=== PATIENT | female | born 1965 | race Caucasian/White ===

== ENCOUNTER 2018-06-05 19:29 | Observation (INO) ==
[2018-06-05 19:49] LABS: Bilirubin,Urine Negative (Negative); Blood,Urine Negative (Negative); Clarity,Urine Clear (Clear); Color,Urine Yellow (Yellow); Glucose,Urine (UA) >=1000 mg/dL (Normal); Ketones,Urine Negative (Negative); Leukocyte Esterase,Urine Negative (Negative); Nitrite,Urine Negative (Negative); PH,Urine 6.5 pH Units (5.0-8.0); Protein,Urine 30 mg/dL (Neg-Trace); Specific Gravity,Urine 1.013 (1.010-1.025); Urobilinogen,Urine Normal (Normal)
[2018-06-05 19:51] LABS: Bacteria,Urine None Seen per hpf (None-Few); Hyaline Casts,Urine None Seen per lpf (None-Few); RBC,Urine 0-3 per hpf (0-3); Squamous Epithelial Cell,Urine Many per lpf (None-Few); WBC,Urine 0-3 per hpf (0-3)
--- NOTE | 2018-06-05 19:55 | Emergency Department Note ---
Disposition Clinical Impression: Hyperglycemia, Flank pain Disposition: Still a Patient Referrals: Richelle Esposito, IVANA [Primary Care Provider] - Forms: ED Satisfaction Letter General Adult HPI - General Chief complaint: ED Urogenital-Female Stated complaint: kidney stones Time Seen by Provider: 06/05/18 19:32 Source: patient Limitations: no limitations Nursing Notes Reviewed: Yes Vital Signs Reviewed: Yes - History of Present Illness HPI Narrative: 52 year old female presents to the ED with complaints of right flank pain and states that she has a history of kidney stones but none that have needed garcia rgical intervnetion. PAtinet states that she was recently diagnosed witha UTI and on a 3 day course of bactrim and states that her symptoms have not really improved. Milana states that she just developed some nausea without vomitting and no fevers. Milana denies chest pain or STDS or vaginal bleeding or discahrge. She states that ever since she had her hysterecomy she has had recurrent UTIs. Pain is sharp and wraps around to the right groin. Pain Scale: 9 - Related Data Home Medications Medication Instructions Recorded Confirmed Tamsulosin [Flomax] 0.4 mg PO DAILY 11/16/17 11/16/17 Previous Rx's Medication Instructions Recorded Promethazine [Phenergan] 25 mg PO Q6HR PRN #10 tablet 11/09/17 Sulfamethoxazole/Trimeth DS 1 each PO BID #10 tablet 11/09/17 [Bactrim DS] OxyCODONE/APAP 5/325 [Percocet 1 each PO Q4HR PRN 7 Days #42 11/17/17 5/325 MG] tablet HYDROcodone/Acet 5/325 mg [[place] 1 tab PO Q4H PRN 3 Days #18 tab 12/01/17 5-325 mg] Hyoscyamine SL [Levsin SL] 0.125 mg SL TID #15 tab.subl 12/01/17 Oxycodone HCl/Acetaminophen 1 each PO Q6H PRN 3 Days #12 tablet 12/01/17 [Endocet 5-325 Tablet] Phenazopyridine [Pyridium] 100 mg PO TID #9 tablet 12/01/17 Dicyclomine [Bentyl] 10 mg PO QID PRN #20 capsule 12/03/17 Lidocaine Patch [Lidoderm 5% patch] 1 each TP DAILY PRN #14 adh..patch 12/03/17 OxyCODONE/APAP 5/325 [Percocet 1 each PO Q6HR PRN 3 Days #12 12/05/17 5/325 MG] tablet Allergies Allergy/AdvReac Type Severity Reaction Status Date / Time morphine Allergy Rash Verified 06/05/18 19:31 ondansetron Allergy Rash Verified 06/05/18 19:31 [From Zofran (as hydrochloride)] acetaminophen [From [place]] AdvReac Headache Verified 06/05/18 19:31 adhesive tape AdvReac Rash Verified 06/05/18 19:31 hydrocodone [From [place]] AdvReac Headache Verified 06/05/18 19:31 Constitutional: Denies: fever, chills, weakness, weight change Eyes: Denies: eye pain, eye discharge, vision change ENT ED: Denies: ear pain, throat pain, dental pain, hearing loss, epistaxis, congestion, dysphagia Cardiovascular: Denies: chest pain, palpitations, dyspnea on exertion, edema, syncope Respiratory: Denies: cough, dyspnea, wheezes, hemoptysis, stridor Gastrointestinal: Reports: nausea. Denies: abdominal pain, vomiting, diarrhea, constipation, hematemesis, melena, hematochezia Genitourinary: Reports: dysuria. Denies: frequency, hematuria, discharge Musculoskeletal: Reports: back pain. Denies: neck pain, arthralgia, myalgia Integumentary: Denies: rash, abrasion, lesions Neurological: Denies: headache, weakness, numbness, paresthesias, confusion, abnormal gait, vertigo Psychiatric: Denies: anxiety, depression, suicidal thoughts, homicidal thoughts, auditory hallucinations, visual hallucinations Endocrine: Denies: fatigue Hematological/Lymphatic: Denies: easy bleeding, easy bruising Allergic/Immunologic: Denies: facial swelling, urticaria Past Medical History - Past Medical History Medical history: Reports: CVA, kidney stones, other Surgical history: Reports: , other Psychiatric history: Reports: no psych history - Social History Smoking Status: Current every day smoker Smokeless Tobacco Status: No Alcohol use: Reports: none Drug use: Reports: marijuana Physical Exam - General Limitations: no limitations General appearance: alert - Head Head exam: atraumatic, normocephalic, normal inspection - Eye Eye exam: Present: normal appearance, PERRL, EOMI - Expanded Eye Exam Pupils: Bilateral: reactive - ENT ENT exam: normal exam, normal oropharynx, mucous membranes moist - Expanded ENT Exam External ear exam: Present: normal external inspection Mouth exam: Present: normal external inspection Teeth exam: Present: normal inspection Throat exam: Present: normal inspection - Neck Neck exam: Present: normal inspection, full ROM, trachea midline - Chest Chest inspection: Present: normal inspection, symmetric chest wall rise - Respiratory Respiratory exam: Present: normal lung sounds bilaterally - Cardiovascular Cardiovascular exam: Present: regular rate, normal rhythm, normal heart sounds - Abdominal Exam Abdominal exam: Present: soft, Non-Tender. Absent: tenderness, distention, guarding, rebound, rigidity - Extremities Exam Extremities exam: Present: normal inspection, full ROM. Absent: tenderness, pedal edema - Expanded Upper Extremity Exam Shoulder exam: Present: normal inspection, full ROM Arm exam: Present: normal inspection, full ROM Elbow exam: Present: normal inspection, full ROM Forearm/Wrist exam: Present: normal inspection, full ROM Hand exam: Present: normal inspection, full ROM Vascular exam: Normal: capillary refill, radial pulse - Expanded Lower Extremity Exam Hip/Pelvis exam: Present: normal inspection, full ROM Upper leg exam: Present: normal inspection, full ROM Knee exam: Present: normal inspection, full ROM Lower leg exam: Present: normal inspection, full ROM Ankle exam: Present: normal inspection, full ROM Foot/toe exam: Present: normal inspection, full ROM Neurovascular/Tendon exam: Absent: motor deficit, sensory deficit, tendon deficit - Back Exam Back exam: Present: normal inspection, full ROM, CVA tenderness (R) - Neurological Exam Neurological exam: Present: alert, oriented X3 - Expanded Neurological Exam Patient oriented to: Present: person, place, time Coma Scale Eye Opening: Spontaneous Coma Scale Motor Response: Obeys Commands Coma Scale Verbal Response: Oriented Coma Scale Total: 15 - Psychiatric Psychiatric exam: Present: normal affect, normal mood - Skin Skin exam: Present: warm, dry, intact, normal color Course Course Narrative: we will do labs and ABCT and UA - Reevaluation(s) Reevaluation #1: patient has a critically high glucose and secondary to this and her flank pain in addiitn to nausea I will followpu wiht venous blood gas and ketones and treat with IVf. Ana Marianet will need more workup and thus I will sign patinet out to the 3p-1a Dr. Rolando Meza for further workup and reassssemnt. CT is still pending Time: 20:41 Vital Signs Temperature 97.8 F 06/05/18 19:31 Pulse Rate 80 06/05/18 19:31 Respiratory Rate 16 06/05/18 19:31 Blood Pressure 182/91 06/05/18 19:31 O2 Sat by Pulse Oximetry 98 06/05/18 19:31 Temperature 97.8 F 06/05/18 19:38 Pulse Rate 80 06/05/18 19:38 Respiratory Rate 16 06/05/18 19:38 Blood Pressure 182/91 06/05/18 19:38 O2 Sat by Pulse Oximetry 98 06/05/18 19:38 Oxygen Delivery Oxygen Delivery Room Air Medical Decision Making - Lab Data Result diagrams: 06/05/18 19:58 06/05/18 19:58 Lab Results 06/05/18 06/05/18 06/05/18 Range/Units 19:38 19:58 19:58 WBC 7.2 (4.3-11.1) K/mcL RBC 4.63 (3.82-4.97) M/mcL Hgb 13.8 (11.5-15.4) g/dL Hct 42.6 (35.3-44.9) % MCV 92.0 (83.0-100.0) fL MCH 29.8 (28.0-33.3) pg MCHC 32.4 (31.6-35.5) g/dL RDW 13.8 (11.5-14.5) % Plt Count 244 (140-400) K/mcL MPV 11.1 (9.4-12.4) fL Immature Gran % 0.6 (0-4) % Seg Neutrophils % 69.4 % Lymphocytes % 20.6 % Monocytes % 6.9 % Eosinophils % 1.9 % Basophils % 0.6 % Neutrophils # 5.0 (1.6-8.9) K/mcL Lymphocytes # 1.5 (0.6-4.6) K/mcL Monocytes # 0.5 (0.0-1.3) K/mcL Eosinophils # 0.1 (0.0-0.6) K/mcL Basophils # 0.0 (0.0-0.2) K/mcL Sodium 126 L (136-145) mEq/L Potassium 4.0 (3.5-5.1) mEq/L Chloride 96 L (98-107) mEq/L Carbon Dioxide 19 L (23-29) mEq/L BUN 22 H (6-20) mg/dL Creatinine 1.64 H (0.60-1.20) mg/dL Est GFR ( Amer) 40 L (> 60) Est GFR (Non-Af Amer) 33 L (> 60) BUN/Creatinine Ratio 13 (6-26) Glucose 571 H* (70-105) mg/dL Calculated Osmolality 292 (280-300) Calcium 9.1 (8.6-10.3) mg/dL Urine Color Yellow (Yellow) Urine Clarity Clear (Clear) Urine pH 6.5 (5.0-8.0) pH Units Ur Specific [place] 1.013 (1.010-1.025) Urine Protein 30 H (Neg-Trace) mg/dL Urine Glucose (UA) >=1000 H (Normal) mg/dL Urine Ketones Negative (Negative) mg/dL Urine Blood Negative (Negative) Urine Nitrite Negative (Negative) Urine Bilirubin Negative (Negative) Urine Urobilinogen Normal (Normal) mg/dL Ur Leukocyte Esterase Negative (Negative) Urine Microscopic RBC 0-3 (0-3) per hpf Urine Microscopic WBC 0-3 (0-3) per hpf Ur Squamous Epith Cells Many H (None-Few) per lpf Urine Bacteria None Seen (None-Few) per hpf Hyaline Casts None Seen (None-Few) per lpf Ur Culture Indicated? NO (NO)
[2018-06-05] MEDS ORDERED: Ketorolac 30 MG/ML VIAL IM ONE (19:58)
[2018-06-05] MEDS ORDERED: Metoclopramide 10 MG/10 ML UD.LIQ PO STA (19:58)
[2018-06-05 20:16] LABS: Basophils % 0.6 %; Eosinophils # 0.1 K/mcL (0.0-0.6); Eosinophils % 1.9 %; Hematocrit 42.6 % (35.3-44.9); Hemoglobin 13.8 g/dL (11.5-15.4); Immature Granulocytes % 0.6 % (0-4); Lymphocytes # 1.5 K/mcL (0.6-4.6); Lymphocytes % 20.6 %; Mean Corpuscular HGB Conc 32.4 g/dL (31.6-35.5); Mean Corpuscular Hemoglobin 29.8 pg (28.0-33.3); Mean Platelet Volume 11.1 fL (9.4-12.4); Monocytes # 0.5 K/mcL (0.0-1.3); Monocytes % 6.9 %; Platelet Count 244 K/mcL (140-400); Red Blood Count 4.63 M/mcL (3.82-4.97); Red Cell Distribution Width 13.8 % (11.5-14.5); Segmented Neutrophils % 69.4 %
[2018-06-05 20:38] LABS: BUN/Creatinine Ratio 13 (6-26); Blood Urea Nitrogen 22 mg/dL (6-20); Calcium 9.1 mg/dL (8.6-10.3); Carbon Dioxide 19 mEq/L (23-29); Chloride 96 mEq/L (98-107); Glucose 571 mg/dL (70-105); Osmolality,Calculated 292 (280-300); Sodium 126 mEq/L (136-145); eGFR For Non-African Americans 33 (> 60)
[2018-06-05] MEDS ORDERED: 0.9 % Sodium Chloride 1,000 ML IVC ONE ×2 (20:39→21:45)
[2018-06-05 21:08] LABS: Troponin I < 0.03 ng/mL (< 0.04)
[2018-06-05 21:27] LABS: VBG HCO3 23 mEq/L (21-27); VBG PCO2 40 mmHg (41-51); VBG PH 7.37 pH Units (7.32-7.42); VBG PO2 174 mmHg (25-50)
[2018-06-05] MEDS ORDERED: Insulin Regular, Human 100 UNIT/ML SQ ONE (21:45)
--- NOTE | 2018-06-05 22:22 | Internal Med History&Physical ---
<Salvador Orosco Li - Last Filed: 06/06/18 03:22> Date of Encounter: 06/06/18 Time of Encounter: 22:18 Internal Medicine - H&P: HPI Chief complaint: flank pain and dysuria Admitted From: Emergency Dept Plans for Post Hospital Care: Home History of present illness: Ms. Medel is a 52 year old female with PMHx kidney surgery at 6 yo, coil surgery for anuerysm, , nephrolithiasis, and stroke at the age of 28 admitted from the ED for evaluation of hyperglycemia and flank pain with urinary symptoms. Patient symptoms started on 05/27 with dysuria, increased frequency, flank pain. Patient was seen at an urgent care on 05/27 dxd with UTI and prescribed fluconazole and bactrim. She states she has had relief of vaginal itching, however she continues to have symptoms of a kidney stone. Has difficult time describing the sensation she feels when she urinates. Denies fevers, headache, chest pain, dyspnea, abdominal pain, diarrhea, hematuria or rash. Patient denies history of diabetes. Past Med Surg Social Fam HX - Past Medical History Medical history: CVA, kidney stones, other Additional medical history: 'BRAIN ANEURISM' Psychiatric history: no psych history - Past Surgical History Surgical History: , other Additional surgical history: brain ansyurm clipped - Social History Smoking Status: Current every day smoker Smokeless Tobacco Status: No Alcohol use: none Drug use: marijuana Internal Medicine - H&P: Meds Promethazine [Phenergan] 25 mg PO Q6HR PRN #10 tablet 11/09/17 [Rx] Sulfamethoxazole/Trimeth DS [Bactrim DS] 1 each PO BID #10 tablet 11/09/17 [Rx] Tamsulosin [Flomax] 0.4 mg PO DAILY 11/16/17 [History] OxyCODONE/APAP 5/325 [Percocet 5/325 MG] 1 each PO Q4HR PRN 7 Days #42 tablet 11/17/17 [Rx] HYDROcodone/Acet 5/325 mg [[place] 5-325 mg] 1 tab PO Q4H PRN 3 Days #18 tab 12/01/17 [Rx] Hyoscyamine SL [Levsin SL] 0.125 mg SL TID #15 tab.subl 12/01/17 [Rx] Oxycodone HCl/Acetaminophen [Endocet 5-325 Tablet] 1 each PO Q6H PRN 3 Days #12 tablet 12/01/17 [Rx] Phenazopyridine [Pyridium] 100 mg PO TID #9 tablet 12/01/17 [Rx] Dicyclomine [Bentyl] 10 mg PO QID PRN #20 capsule 12/03/17 [Rx] Lidocaine Patch [Lidoderm 5% patch] 1 each TP DAILY PRN #14 adh..patch 12/03/17 [Rx] OxyCODONE/APAP 5/325 [Percocet 5/325 MG] 1 each PO Q6HR PRN 3 Days #12 tablet 0 12/05/17 [Rx] Allergy/AdvReac Type Severity Reaction Status Date / Time morphine Allergy Rash Verified 06/05/18 19:31 ondansetron Allergy Rash Verified 06/05/18 19:31 [From Zofran (as hydrochloride)] acetaminophen [From [place]] AdvReac Headache Verified 06/05/18 19:31 adhesive tape AdvReac Rash Verified 06/05/18 19:31 hydrocodone [From [place]] AdvReac Headache Verified 06/05/18 19:31 All Systems PM: A 10-system review of systems was performed and is negative for pertinent findings except as documented above in the HPI. - Constitutional Constitutional: as per HPI - EENT Eyes: as per HPI Ears: as per HPI Nose, mouth and throat: as per HPI - Breasts Breasts: as per HPI - Cardiovascular Cardiovascular ROS IM: as per HPI - Respiratory Respiratory: as per HPI - Gastrointestinal Gastrointestinal: as per HPI - Genitourinary Genitourinary: as per HPI - Musculoskeletal Musculoskeletal ROS IM: as per HPI - Integumentary Integumentary IM: as per HPI - Neurological Neurological ROS: as per HPI - Psychiatric Psychiatric: as per HPI - Endocrine Endocrine IM: as per HPI - Hematologic/Lymphatic Hematologic/Lymphatic: as per HPI - Allergic/Immunologic Allergic/Immunologic: as per HPI - Constitutional Vitals: Temp Pulse Resp BP Pulse Ox 97.8 F 80 16 182/91 98 06/05/18 19:38 06/05/18 19:38 06/05/18 19:38 06/05/18 19:38 06/05/18 19:38 General appearance: Present: A&O X 3, no acute distress Exam: Patient is sitting up in bed in no acute distress. - Head Head exam: Present: atraumatic, normal inspection, normocephalic - Eye Eye exam: Present: normal appearance, PERRL - ENT ENT exam: Present: mucous membranes moist, normal exam - Neck Neck exam general surgery: Present: full ROM, normal inspection. Absent: tenderness - Respiratory Respiratory exam: Present: CTAB. Absent: rales, respiratory distress, wheezes - Cardiovascular Cardiovascular exam: Present: RRR, +S1, +S2 - GI/Abdominal GI/Abdominal exam: Present: normal bowel sounds, soft, no peritoneal signs. Absent: tenderness - Extremities Exam Extremities exam: Present: normal inspection. Absent: calf tenderness, pedal e shira - Back Exam Back exam: Present: CVA tenderness (L), CVA tenderness (R) - Neurological Exam Neurological exam: Present: alert, oriented X3, no focal deficits - Psychiatric Psychiatric exam: Present: normal affect, normal mood - Skin Skin exam: Present: intact, normal color Internal Med - H&P Results - Labs CBC & Chem 7: 06/05/18 19:58 06/05/18 19:58 Labs: Short CBC 06/05/18 Range/Units 19:58 WBC 7.2 (4.3-11.1) K/mcL Hgb 13.8 (11.5-15.4) g/dL Hct 42.6 (35.3-44.9) % Plt Count 244 (140-400) K/mcL Neutrophils # 5.0 (1.6-8.9) K/mcL BMP 06/05/18 19:58 Sodium 126 L Potassium 4.0 Chloride 96 L Carbon Dioxide 19 L BUN 22 H Creatinine 1.64 H Glucose 571 H* Calcium 9.1 Cardiac Enzymes 06/05/18 Range/Units 19:58 Troponin I < 0.03 (< 0.04) ng/mL Urine 06/05/18 Range/Units 19:38 Urine Color Yellow (Yellow) Urine Clarity Clear (Clear) Urine pH 6.5 (5.0-8.0) pH Units Ur Specific [place] 1.013 (1.010-1.025) Urine Protein 30 H (Neg-Trace) mg/dL Urine Glucose (UA) >=1000 H (Normal) mg/dL - ABG Interpretation ABG results: 06/05/18 21:24 VBG pH 7.37 VBG pCO2 40 L VBG pO2 174 H VBG HCO3 23 - Impressions ITS Impressions Abdomen/Pelvis CT 06/05/18 19:34 IMPRESSION: Fatty infiltration of the liver. Bilateral nephrolithiasis. D/ / Kayce Trinh Cha, MD / Kayce Trinh Cha, MD Interpreting Provider: Kayce Trinh Cha, MD - Assessment and plan (1) Hyperglycemia Current Visit: Yes Status: Acute Assessment and plan: Serum glucose in ED 571 hyponatremic at 126 however, corrected for glucose 136 No acidosis and no anion gap No ketones in serum or urine >1000 glucose in urine Hx poorly controlled sugar with no dx of DM Received 1L bolus in the ED and 10units SQ insulin Do not suspect HHS at this time given value of glucose, hx of poorly controlled gluocose, and otherwise stable patient Suspect this is poorly controlled T2DM Plan: - Recheck glucose after completion of 2L bolus - Low dose SSI - Monitor Na (2) BERNARDINO (acute kidney injury) Current Visit: Yes Status: Acute Assessment and plan: Suspect secondary to hypo-perfusion in setting of dehydration from hyperglycemia Cr 1.64 with normal baseline Plan: - 2 L bolus and maintenance fluids - Recheck labs in the AM (3) Flank pain Current Visit: Yes Status: Acute Assessment and plan: Pain with palpation of bilateral CVAs Multiple visits for similar symptoms in the past usually attributed to chronic renal colic Patient received toradol in ED (prior to labs being drawn, unaware of BERNARDINO) Patient also received fentanyl in the ED, patient refused to come to floor prio r to receiving the pain medication May be exacerbated by BERNARDINO UA negative for signs of infection CT abdomen and pelvis: Fatty infiltration of the liver and bilateral nephrolithiasis - nonobstructing and no hydronephrosis Plan: - Acetaminophen PRN - Lidocaine patch PRN - Bentyl PRN (4) DVT prophylaxis Current Visit: Yes Status: Acute Assessment and plan: Lovenox SQ - Time Spent With Patient Total time spent is greater than 50% in coordination of care (as documented) at patient's floor/unit and/or counseling patient: <Duncan Calzada - Last Filed: 06/06/18 03:41> Date of Encounter: 06/06/18 Time of Encounter: 00:25 - Constitutional Constitutional: no chills, no fever(s) - EENT Eyes: blurry vision Nose, mouth and throat: no nasal congestion, no sore throat - Cardiovascular Cardiovascular ROS IM: no chest pain, no dyspnea - Respiratory Respiratory: no cough, no chest congestion - Gastrointestinal Gastrointestinal: no cramping - Genitourinary Genitourinary: no flank pain - Musculoskeletal Musculoskeletal ROS IM: back pain - Neurological Neurological ROS: no dizziness, no focal weakness, no frequent falls, no headache(s) - Endocrine Endocrine IM: cold intolerance, polydipsia, polyuria, no heat intolerance - Constitutional Vitals: Temp Pulse Resp BP Pulse Ox 97.9 F 68 20 125/78 94 06/05/18 23:53 06/05/18 23:53 06/05/18 23:53 06/05/18 23:53 06/05/18 23:53 General appearance: Present: A&O X 3, no acute distress - Eye Eye exam: Present: PERRL. Absent: scleral icterus - ENT ENT exam: Present: mucous membranes dry, normal exam - Neck Neck exam general surgery: Present: normal inspection, supple - Respiratory Respiratory exam: Present: CTAB. Absent: rales, respiratory distress - Cardiovascular Cardiovascular exam: Present: RRR, +S1, +S2 - GI/Abdominal GI/Abdominal exam: Present: normal bowel sounds, soft. Absent: tenderness - Extremities Exam Extremities exam: Present: normal inspection. Absent: calf tenderness - Back Exam Back exam: Absent: CVA tenderness (L), CVA tenderness (R) - Skin Skin exam: Present: dry, intact, warm Internal Med - H&P Results - Labs CBC & Chem 7: 06/05/18 19:58 06/05/18 19:58 Labs: Short CBC 06/05/18 Range/Units 19:58 WBC 7.2 (4.3-11.1) K/mcL Hgb 13.8 (11.5-15.4) g/dL Hct 42.6 (35.3-44.9) % Plt Count 244 (140-400) K/mcL Neutrophils # 5.0 (1.6-8.9) K/mcL BMP 06/05/18 19:58 Sodium 126 L Potassium 4.0 Chloride 96 L Carbon Dioxide 19 L BUN 22 H Creatinine 1.64 H Glucose 571 H* Calcium 9.1 Cardiac Enzymes 06/05/18 Range/Units 19:58 Troponin I < 0.03 (< 0.04) ng/mL Urine 06/05/18 Range/Units 19:38 Urine Color Yellow (Yellow) Urine Clarity Clear (Clear) Urine pH 6.5 (5.0-8.0) pH Units Ur Specific [place] 1.013 (1.010-1.025) Urine Protein 30 H (Neg-Trace) mg/dL Urine Glucose (UA) >=1000 H (Normal) mg/dL - ABG Interpretation ABG results: 06/05/18 21:24 VBG pH 7.37 VBG pCO2 40 L VBG pO2 174 H VBG HCO3 23 - Impressions ITS Impressions Abdomen/Pelvis CT 06/05/18 19:34 IMPRESSION: Fatty infiltration of the liver. Bilateral nephrolithiasis. D/ / Kayce Trinh Cha, MD / Kayce Trinh Cha, MD Interpreting Provider: Kayce Trinh Cha, MD - Time Spent With Patient Total time spent is greater than 50% in coordination of care (as documented) at patient's floor/unit and/or counseling patient: - Attending Attestation I discussed the patient [place], past smoker history, review of systems, lab data, and exam findings with Dr. Orosco. I then saw and examined patient independently. Patient does not meet criteria for DKA or HHS. By exam, history, and lab data, she has evidence of uncontrolled diabetes. She has never been formally diagnosed with diabetes. However, upon further review of old labs, she has had several episodes of hyperglycemia. She received IV fluids and one-time dose of subcutaneous insulin. Her glucose has improved but still remains high. We will check an A1c in the morning and continue IV fluid hydration. We will keep her on sliding scale insulin. She very well may be able to be treated with oral hypoglycemic agents. However, we will monitor her closely here in the hospital and adjust her insulin and diet accordingly once her repeat labs are resulted. She would also benefit from diabetic education. CT of the abdomen and pelvis does not show any obstructive uropathy. She suffers from chronic pain, and I suspect it is exacerbated by her volume depleted status from her uncontrolled diabetes. With aggressive hydration, I think she will improve clinically and can hopefully be discharged in the next day or 2 with appropriate diabetic education and management plan. Other than my comments above and noted exam findings, I agree with Dr. Orosco's assessment and plan.
[2018-06-05] MEDS ORDERED: *HR* FentaNYL (PF) 100 MCG/2 ML VIAL IVP ONE (23:16)
[2018-06-06] MEDS ORDERED: Dextrose Gel 15 GM/37.5 ML TUBE PO PRN ×2 (00:13)
[2018-06-06] MEDS ORDERED: *HR* Dextrose 50 % in Water (Syg) 50 ML SYRINGE IVP PRN (00:13)
[2018-06-06] MEDS ORDERED: D5% in Water 1,000 ML IVC PRN (00:13)
[2018-06-06] MEDS ORDERED: Acetaminophen 325 MG TABLET PO PRN (00:14)
[2018-06-06] MEDS ORDERED: Naloxone 0.4 MG/ML INJ IVP PRN (00:14)
[2018-06-06] MEDS ORDERED: Insulin LISPRO 300 UNITS/3 ML VIAL SQ SCH (00:15)
[2018-06-06] MEDS ORDERED: Hyoscyamine 0.5 MG/ML MLS IVP PRN (00:16)
--- NOTE | 2018-06-06 00:20 | Emergency Department Note ---
Disposition Clinical Impression: Hyperglycemia, Flank pain Acute renal failure Qualifiers: Acute renal failure type: unspecified Qualified Code(s): N17.9 - Acute kidney failure, unspecified Disposition: Admitted As Inpatient Condition: Fair General Adult HPI - General Chief complaint: ED Urogenital-Female Stated complaint: kidney stones Time Seen by Provider: 06/05/18 19:32 Source: patient Limitations: no limitations Nursing Notes Reviewed: Yes Vital Signs Reviewed: Yes - History of Present Illness Pain Scale: 8 - Related Data Home Medications Medication Instructions Recorded Confirmed Tamsulosin [Flomax] 0.4 mg PO DAILY 11/16/17 11/16/17 Previous Rx's Medication Instructions Recorded Promethazine [Phenergan] 25 mg PO Q6HR PRN #10 tablet 11/09/17 Sulfamethoxazole/Trimeth DS 1 each PO BID #10 tablet 11/09/17 [Bactrim DS] OxyCODONE/APAP 5/325 [Percocet 1 each PO Q4HR PRN 7 Days #42 11/17/17 5/325 MG] tablet HYDROcodone/Acet 5/325 mg [[place] 1 tab PO Q4H PRN 3 Days #18 tab 12/01/17 5-325 mg] Hyoscyamine SL [Levsin SL] 0.125 mg SL TID #15 tab.subl 12/01/17 Oxycodone HCl/Acetaminophen 1 each PO Q6H PRN 3 Days #12 tablet 12/01/17 [Endocet 5-325 Tablet] Phenazopyridine [Pyridium] 100 mg PO TID #9 tablet 12/01/17 Dicyclomine [Bentyl] 10 mg PO QID PRN #20 capsule 12/03/17 Lidocaine Patch [Lidoderm 5% patch] 1 each TP DAILY PRN #14 adh..patch 12/03/17 OxyCODONE/APAP 5/325 [Percocet 1 each PO Q6HR PRN 3 Days #12 12/05/17 5/325 MG] tablet Allergies Allergy/AdvReac Type Severity Reaction Status Date / Time morphine Allergy Rash Verified 06/05/18 19:31 ondansetron Allergy Rash Verified 06/05/18 19:31 [From Zofran (as hydrochloride)] acetaminophen [From [place]] AdvReac Headache Verified 06/05/18 19:31 adhesive tape AdvReac Rash Verified 06/05/18 19:31 hydrocodone [From [place]] AdvReac Headache Verified 06/05/18 19:31 Constitutional: Denies: fever, chills, weakness, weight change Eyes: Denies: eye pain, eye discharge, vision change ENT ED: Denies: ear pain, throat pain, dental pain, hearing loss, epistaxis, congestion, dysphagia Cardiovascular: Denies: chest pain, palpitations, dyspnea on exertion, edema, syncope Respiratory: Denies: cough, dyspnea, wheezes, hemoptysis, stridor Gastrointestinal: Reports: nausea. Denies: abdominal pain, vomiting, diarrhea, constipation, hematemesis, melena, hematochezia Genitourinary: Reports: dysuria. Denies: frequency, hematuria, discharge Musculoskeletal: Reports: back pain. Denies: neck pain, arthralgia, myalgia Integumentary: Denies: rash, abrasion, lesions Neurological: Denies: headache, weakness, numbness, paresthesias, confusion, abnormal gait, vertigo Psychiatric: Denies: anxiety, depression, suicidal thoughts, homicidal thoughts, auditory hallucinations, visual hallucinations Endocrine: Denies: fatigue Hematological/Lymphatic: Denies: easy bleeding, easy bruising Allergic/Immunologic: Denies: facial swelling, urticaria Past Medical History - Past Medical History Medical history: Reports: CVA, kidney stones, other Surgical history: Reports: , other Psychiatric history: Reports: no psych history - Social History Smoking Status: Current every day smoker Smokeless Tobacco Status: No Alcohol use: Reports: none Drug use: Reports: marijuana Physical Exam - General Limitations: no limitations General appearance: alert Course Vital Signs Temperature 97.8 F 06/05/18 19:31 Pulse Rate 80 06/05/18 19:31 Respiratory Rate 16 06/05/18 19:31 Blood Pressure 182/91 06/05/18 19:31 O2 Sat by Pulse Oximetry 98 06/05/18 19:31 Temperature 97.9 F 06/05/18 23:53 Pulse Rate 68 06/05/18 23:53 Respiratory Rate 20 06/05/18 23:53 Blood Pressure 125/78 06/05/18 23:53 O2 Sat by Pulse Oximetry 94 06/05/18 23:53 Oxygen Delivery Oxygen Delivery Room Air Medical Decision Making - MDM Narrative Medical decision making narrative: Patient received in sign out at 9 PM pending laboratory evaluation and disposition. Patient denies a history of diabetes however she has a signifi cantly elevated glucose. She states she has had polyuria and has felt lightheaded. She was recently diagnosed with urinary tract infection treated with Bactrim. Her anion gap is only 14 and she does not have elevation or beta hydroxybutyric acid however she is a new onset diabetes which is likely type II. Patient has acute renal failure. She will be given IV fluids and insulin in the emergency department. She was admitted to the hospitalist for further care and evaluation. She felt comfortable with this plan. - Medical Records Medical records reviewed: Yes I reviewed the patient's medical records. - Lab Data Lab results reviewed: Yes I reviewed the patient's lab results. Result diagrams: 06/05/18 19:58 06/05/18 19:58 Lab Results 06/05/18 06/05/18 06/05/18 Range/Units 19:38 19:58 19:58 WBC 7.2 (4.3-11.1) K/mcL RBC 4.63 (3.82-4.97) M/mcL Hgb 13.8 (11.5-15.4) g/dL Hct 42.6 (35.3-44.9) % MCV 92.0 (83.0-100.0) fL MCH 29.8 (28.0-33.3) pg MCHC 32.4 (31.6-35.5) g/dL RDW 13.8 (11.5-14.5) % Plt Count 244 (140-400) K/mcL MPV 11.1 (9.4-12.4) fL Immature Gran % 0.6 (0-4) % Seg Neutrophils % 69.4 % Lymphocytes % 20.6 % Monocytes % 6.9 % Eosinophils % 1.9 % Basophils % 0.6 % Neutrophils # 5.0 (1.6-8.9) K/mcL Lymphocytes # 1.5 (0.6-4.6) K/mcL Monocytes # 0.5 (0.0-1.3) K/mcL Eosinophils # 0.1 (0.0-0.6) K/mcL Basophils # 0.0 (0.0-0.2) K/mcL VBG pH (7.32-7.42) pH Units VBG pCO2 (41-51) mmHg VBG pO2 (25-50) mmHg VBG HCO3 (21-27) mEq/L Sodium 126 L (136-145) mEq/L Potassium 4.0 (3.5-5.1) mEq/L Chloride 96 L (98-107) mEq/L Carbon Dioxide 19 L (23-29) mEq/L BUN 22 H (6-20) mg/dL Creatinine 1.64 H (0.60-1.20) mg/dL Est GFR ( Amer) 40 L (> 60) Est GFR (Non-Af Amer) 33 L (> 60) BUN/Creatinine Ratio 13 (6-26) Glucose 571 H* (70-105) mg/dL Calculated Osmolality 292 (280-300) Calcium 9.1 (8.6-10.3) mg/dL Troponin I < 0.03 (< 0.04) ng/mL Beta-Hydroxybutyric Acd (0.02-0.27) mmol/L Urine Color Yellow (Yellow) Urine Clarity Clear (Clear) Urine pH 6.5 (5.0-8.0) pH Units Ur Specific [place] 1.013 (1.010-1.025) Urine Protein 30 H (Neg-Trace) mg/dL Urine Glucose (UA) >=1000 H (Normal) mg/dL Urine Ketones Negative (Negative) mg/dL Urine Blood Negative (Negative) Urine Nitrite Negative (Negative) Urine Bilirubin Negative (Negative) Urine Urobilinogen Normal (Normal) mg/dL Ur Leukocyte Esterase Negative (Negative) Urine Microscopic RBC 0-3 (0-3) per hpf Urine Microscopic WBC 0-3 (0-3) per hpf Ur Squamous Epith Cells Many H (None-Few) per lpf Urine Bacteria None Seen (None-Few) per hpf Hyaline Casts None Seen (None-Few) per lpf Ur Culture Indicated? NO (NO) 06/05/18 06/05/18 Range/Units 21:13 21:24 WBC (4.3-11.1) K/mcL RBC (3.82-4.97) M/mcL Hgb (11.5-15.4) g/dL Hct (35.3-44.9) % MCV (83.0-100.0) fL MCH (28.0-33.3) pg MCHC (31.6-35.5) g/dL RDW (11.5-14.5) % Plt Count (140-400) K/mcL MPV (9.4-12.4) fL Immature Gran % (0-4) % Seg Neutrophils % % Lymphocytes % % Monocytes % % Eosinophils % % Basophils % % Neutrophils # (1.6-8.9) K/mcL Lymphocytes # (0.6-4.6) K/mcL Monocytes # (0.0-1.3) K/mcL Eosinophils # (0.0-0.6) K/mcL Basophils # (0.0-0.2) K/mcL VBG pH 7.37 (7.32-7.42) pH Units VBG pCO2 40 L (41-51) mmHg VBG pO2 174 H (25-50) mmHg VBG HCO3 23 (21-27) mEq/L Sodium (136-145) mEq/L Potassium (3.5-5.1) mEq/L Chloride (98-107) mEq/L Carbon Dioxide (23-29) mEq/L BUN (6-20) mg/dL Creatinine (0.60-1.20) mg/dL Est GFR ( Amer) (> 60) Est GFR (Non-Af Amer) (> 60) BUN/Creatinine Ratio (6-26) Glucose (70-105) mg/dL Calculated Osmolality (280-300) Calcium (8.6-10.3) mg/dL Troponin I (< 0.04) ng/mL Beta-Hydroxybutyric Acd 0.17 (0.02-0.27) mmol/L Urine Color (Yellow) Urine Clarity (Clear) Urine pH (5.0-8.0) pH Units Ur Specific [place] (1.010-1.025) Urine Protein (Neg-Trace) mg/dL Urine Glucose (UA) (Normal) mg/dL Urine Ketones (Negative) mg/dL Urine Blood (Negative) Urine Nitrite (Negative) Urine Bilirubin (Negative) Urine Urobilinogen (Normal) mg/dL Ur Leukocyte Esterase (Negative) Urine Microscopic RBC (0-3) per hpf Urine Microscopic WBC (0-3) per hpf Ur Squamous Epith Cells (None-Few) per lpf Urine Bacteria (None-Few) per hpf Hyaline Casts (None-Few) per lpf Ur Culture Indicated? (NO) - Radiology Data Radiology results reviewed: Yes I reviewed the patient's radiology results.
[2018-06-06] MEDS ORDERED: 0.9 % Sodium Chloride 1,000 ML IVC SCH (01:15)
[2018-06-06] MEDS ORDERED: *HR* FentaNYL (PF) 100 MCG/2 ML VIAL IVP PRN (02:17)
[2018-06-06 03:58] VITALS: BP 126/70
[2018-06-06 05:18] LABS: Albumin 3.2 g/dL (3.5-5.7); Albumin/Globulin Ratio 1.3 (1.1-2.2); Bilirubin,Total 0.2 mg/dL (0.3-1.0); Calcium 8.1 mg/dL (8.6-10.3); Globulin 2.5 g/dL (2.4-3.5); Magnesium 1.8 mg/dL (1.6-2.6); Potassium 4.1 mEq/L (3.5-5.1); Total Protein 5.7 g/dL (6.4-8.9)
[2018-06-06] MEDS ORDERED: *HR* Enoxaparin 40 MG/0.4 ML SYRINGE SQ SCH (07:00)
--- NOTE | 2018-06-06 07:33 | Discharge Summary ---
<Salvador Orosco - Last Filed: 06/06/18 07:31> Orders not resulted at time of discharge: Pending orders 06/06/18 04:46 Hgb A1C AM 0400 Date of Encounter: 06/06/18 Time of Encounter: 07:31 - Discharge Diagnosis (1) Hyperglycemia Priority: Primary Status: Acute (2) BERNARDINO (acute kidney injury) Priority: Primary Status: Acute (3) Flank pain Priority: Secondary Status: Acute (4) DVT prophylaxis Priority: Secondary Status: Acute Hospital course: Ms. Medel is a 52 year old female Discharge discussed with: patient, family - Time Spent with Patient Total time spent providing and/or coordinating discharge services: - Discharge Medications Home Medications: Promethazine [Phenergan] 25 mg PO Q6HR PRN #10 tablet 11/09/17 [Rx] Sulfamethoxazole/Trimeth DS [Bactrim DS] 1 each PO BID #10 tablet 11/09/17 [Rx] Tamsulosin [Flomax] 0.4 mg PO DAILY 11/16/17 [History] RX: OxyCODONE/APAP 5/325 [Percocet 5/325 MG] 1 each PO Q4HR PRN 7 Days #42 tablet 11/17/17 [Rx] Hyoscyamine SL [Levsin SL] 0.125 mg SL TID #15 tab.subl 12/01/17 [Rx] Phenazopyridine [Pyridium] 100 mg PO TID #9 tablet 12/01/17 [Rx] RX: HYDROcodone/Acet 5/325 mg [[place] 5-325 mg] 1 tab PO Q4H PRN 3 Days #18 tab 12/01/17 [Rx] RX: Oxycodone HCl/Acetaminophen [Endocet 5-325 Tablet] 1 each PO Q6H PRN 3 Days #12 tablet 12/01/17 [Rx] Dicyclomine [Bentyl] 10 mg PO QID PRN #20 capsule 12/03/17 [Rx] RX: Lidocaine Patch [Lidoderm 5% patch] 1 each TP DAILY PRN #14 adh..patch 12/03/17 [Rx] OxyCODONE/APAP 5/325 [Percocet 5/325 MG] 1 each PO Q6HR PRN 3 Days #12 tablet 12/05/17 [Rx] Allergies/Adverse Reactions: Allergy/AdvReac Type Severity Reaction Status Date / Time morphine Allergy Rash Verified 06/05/18 19:31 ondansetron Allergy Rash Verified 06/05/18 19:31 [From Zofran (as hydrochloride)] acetaminophen [From [place]] AdvReac Headache Verified 06/05/18 19:31 adhesive tape AdvReac Rash Verified 06/05/18 19:31 hydrocodone [From [place]] AdvReac Headache Verified 06/05/18 19:31 Date of admission: 06/05/18 22:35 Primary care physician: Richelle Esposito CNP Discharging clinician: Duncan Calzada Anticipated date of discharge: 06/06/18 - Constitutional Vitals: Temp Pulse Resp BP Pulse Ox 98 F 63 18 126/70 94 06/06/18 03:55 06/06/18 03:55 06/06/18 03:55 06/06/18 03:55 06/06/18 03:55 General appearance: Present: A&O X 3, no acute distress Exam: Patient sitting on edge of bed anxious to leave - Head Head exam: Present: atraumatic, normal inspection - Eye Eye exam: Present: EOMI, PERRL - Neck Neck exam general surgery: Present: full ROM, supple - Respiratory Respiratory exam: Present: CTAB. Absent: respiratory distress - Cardiovascular Cardiovascular exam: Present: RRR, +S1, +S2 - GI/Abdominal GI/Abdominal exam: Present: soft, no peritoneal signs. Absent: tenderness - Extremities Exam Extremities exam: Present: normal capillary refill, normal inspection, warm - Back Exam Back exam: Present: normal inspection - Neurological Exam Neurological exam: Present: alert, oriented X3, no focal deficits - Psychiatric Psychiatric exam: Present: normal affect, normal mood - Patient Status Disposition: Left Against Medical Advice Condition: Fair Overall status at discharge: patient is not back to baseline - Discharge Instructions Follow Up With: Richelle Esposito CNP [Primary Care Provider] - Additional Instructions: Please follow up with your primary care provider today or as soon as possible. If you decide that you want to continue treatment, please return to the nearest emergency department for further care. If at anytime you experience any new or worsening symptoms, return to the emergency department immediately. - Diet and Activity Diet: diabetic diet <Duncan Calzada - Last Filed: 06/06/18 19:22> - NOTES TO OUTPATIENT PROVIDER Notes to Outpatient Provider: Patient left AMA Date of Encounter: 06/06/18 - Time Spent with Patient Total time spent providing and/or coordinating discharge services: Date of admission: 06/05/18 22:35 Primary care physician: Richelle Esposito CNP - Constitutional Vitals: Temp Pulse Resp BP Pulse Ox 98 F 63 18 126/70 94 06/06/18 03:55 06/06/18 03:55 06/06/18 03:55 06/06/18 03:55 06/06/18 03:55 - Attending Attestation Patient left AMA as noted by Dr. Orosco.
--- NOTE | 2018-06-06 07:43 | Event Note ---
Date of Encounter: 06/06/18 Time of Encounter: 07:43 Patient left AMA before she could be seen.
[2018-06-06 08:11] LABS: Estimated Average Glucose 364 mg/dl; Hemoglobin A1C 14.3 %
--- NOTE | 2018-06-07 21:19 | Electrocardiograph Report ---
[place] [id number] Test Date: 2018-06-05 Pat Name: Becky Medel Department: EXAM9 Room: 2N11 Gender: F Hog Killer: : 1965 Requested By: Anisha Meza Order Number: [id number] Reading MD: Kanu Hernandez Measurements Intervals [place] Rate: 69 P: 80 HI: 169 QRS: 63 QRSD: 85 T: 67 QT: 403 QTc: 432 Interpretive Statements Sinus rhythm Electronically Signed On 06-07-2018 21:17:39 EST by Kanu Hernandez
== END 2018-06-06 07:29 | disposition left against medical advice (07) ==
LOC: EMEROOARM 19:29 → INTOOBSV 22:35 → 2NNU 22:35
PROVIDERS: ADMIT Pediatrics; ATTEND Pediatrics